=== PATIENT | male | born 1975 | race Asian ===

== ENCOUNTER 2021-01-17 17:50 | Emergency (ER) | payer OTHER ==
[~2021-01-17] VITALS: Ht 175.3 cm; Wt 74.8 kg
[2021-01-17 17:53] VITALS: BP_SYST 153
--- NOTE | 2021-01-17 17:53 | NUR ---
Patient to ER HALLWAY BED 1 to gown for evaluation. Side rails up.
--- NOTE | 2021-01-17 17:55 | NUR ---
PT CAME IN FROM HOME C/O LEFT LEG NUMBNESS SPREADING UP BODY TO LEFT ARM AND CHEST OVER THE LAST 4 DAYS. PT DENIES ANY TRAUMA OR INJURY. NO FACIAL DROOP OR WEAKNESS. PT IS AMBULATORY, AAOX4, V/S STABLE.
--- NOTE | 2021-01-17 18:09 | NUR ---
ER DR. ACKERMAN AT THE BEDSIDE EXAMINING PT
--- NOTE | 2021-01-17 18:12 | NUR ---
Patient transported to radiology via AMBULATION, accompanied by STAFF.
--- NOTE | 2021-01-17 18:35 | NUR ---
LAB AT THE BEDSIDE FOR BLOOD DRAW
[2021-01-17 19:11] LABS: ALBUMIN 4.1 g/dL (3.4-4.8); CALCIUM 8.8 mg/dL (8.4-11.0); CREATININE 0.99 mg/dL (0.55-1.30); POTASSIUM 3.8 mmol/L (3.5-5.1); TOTAL BILIRUBIN 0.4 mg/dL (0.0-1.0)
--- NOTE | 2021-01-17 19:11 | NUR ---
REPORT GIVEN TO TIFFANY TRIPATHI FOR CONTINUING CARE
[2021-01-17 19:40] VITALS: BP_SYST 153
--- NOTE | 2021-01-17 19:40 | NUR ---
Patient given written and verbal discharge instructions and verbalizes understanding. ER MD discussed with patient the results and treatment provided. Patient in stable condition. ID arm band removed. Patient educated on pain management and to follow up with PMD. Pain Scale 0/10 Opportunity for questions provided and answered.
== END 2021-01-17 19:40 | disposition home or self-care (01) ==
LOC: SED 17:50
DX: R20.2 Paresthesia of skin (principal)
CPT/HCPCS: 36415; 70450-TC; 76376; 80053; 99284